=== PATIENT | female | born 1980 | race Caucasian/White ===

== ENCOUNTER 2016-10-08 08:58 | Emergency (ER) | payer OTHER ==
[2016-10-08 10:36] LABS: BASOPHIL 0.2 % (0-2); EOSINOPHIL 0.9 % (0-5); HCT 38.8 % (37.0-47.0); HGB 13.5 g/dl (12.5-16.0); LYMPHOCYTE 17.2 % (15-48); MCH 31.4 pg (25.0-31.0); MCHC 34.8 g/dL (32.0-36.0); MCV 90.2 fL (78.0-100.0); MONOCYTE 6.5 % (0-12); MPV 9.4 fL (6.0-9.5); NEUTROPHIL 75.2 % (41-80); PLT 309 K/uL (150-400); RDW 13.4 % (11.5-14.0); WBC 8.9 K/uL (4.0-10.5)
[2016-10-08 10:37] LABS: BILIRUBIN NEGATIVE (NEGATIVE); BLOOD NEGATIVE Ery/uL (NEGATIVE); CLARITY CLEAR (CLEAR); COLOR YELLOW (YELLOW); GLUCOSE (U) NORMAL (NORMAL); KETONE (U) NEGATIVE (NEGATIVE); LEUKOCYTES NEGATIVE Leu/uL (NEGATIVE); NITRITE NEGATIVE (NEGATIVE); PROTEIN NEGATIVE (NEGATIVE); SPECIFIC GRAVITY 1.015 (1.001-1.030); UROBILINOGEN 0.2 mg/dL (0.2-1.0); pH 7.5 (5.0-9.0)
[2016-10-08 11:07] LABS: CREATININE 0.5 mg/dL (0.5-1.0); POTASSIUM 4.2 mmol/L (3.5-5.1)
== END 2016-10-08 11:39 | disposition left against medical advice (07) ==
LOC: FER 08:58
PROVIDERS: Emergency Medicine
DX: O20.9 Hemorrhage in early pregnancy, unspecified (principal); Z87.42 Personal history of other diseases of the female genital tract; Z3A.09 9 weeks gestation of pregnancy
CPT/HCPCS: 36415; 76817; 80048; 81003; 85025

== ENCOUNTER 2016-11-01 15:03 | Emergency (ER) | payer OTHER ==
[2016-11-01 16:01] LABS: BILIRUBIN NEGATIVE (NEGATIVE); BLOOD NEGATIVE Ery/uL (NEGATIVE); CLARITY HAZY (CLEAR); COLOR YELLOW (YELLOW); GLUCOSE (U) NORMAL (NORMAL); KETONE (U) NEGATIVE (NEGATIVE); LEUKOCYTES NEGATIVE Leu/uL (NEGATIVE); NITRITE NEGATIVE (NEGATIVE); PROTEIN NEGATIVE (NEGATIVE)
[2016-11-01 17:22] LABS: BASOPHIL 0.2 % (0-2); HCT 34.3 % (37.0-47.0); HGB 11.8 g/dl (12.5-16.0); LYMPHOCYTE 26.6 % (15-48); MCH 31.5 pg (25.0-31.0); MCHC 34.4 g/dL (32.0-36.0); MCV 91.5 fL (78.0-100.0); MONOCYTE 8.6 % (0-12); MPV 9.5 fL (6.0-9.5); NEUTROPHIL 62.6 % (41-80); PLT 226 K/uL (150-400); RBC 3.75 M/uL (4.20-5.40); RDW 13.2 % (11.5-14.0); WBC 8.5 K/uL (4.0-10.5)
[2016-11-01 17:34] LABS: AMPHETAMINES NEGATIVE (NEGATIVE); BARBITURATES NEGATIVE (NEGATIVE); BENZODIAZEPINES NEGATIVE (NEGATIVE); COCAINE NEGATIVE (NEGATIVE); MARIJUANA (THC) POSITIVE (NEGATIVE); METHADONE NEGATIVE (NEGATIVE); TRICYCLIC ANTIDEPRESSANT NEGATIVE (NEGATIVE)
[2016-11-01 18:06] LABS: CREATININE 0.6 mg/dL (0.5-1.0); POTASSIUM 4.1 mmol/L (3.5-5.1)
== END 2016-11-01 18:29 | disposition home or self-care (01) ==
LOC: FER 15:03
PROVIDERS: Internal Medicine; Nurse Practitioner Family
DX: O99.89 Other specified diseases and conditions complicating pregnancy, childbirth and the puerperium (principal); R10.31 Right lower quadrant pain; M54.5 Low back pain; O26.851 Spotting complicating pregnancy, first trimester; Z88.6 Allergy status to analgesic agent; Z87.42 Personal history of other diseases of the female genital tract; Z3A.13 13 weeks gestation of pregnancy
CPT/HCPCS: 36415; 76817; 80048; 80305; 81003; 84703; 85025; 86850; 86900; 86901